=== PATIENT | male | born 1975 | race Caucasian/White ===

== ENCOUNTER → 2017-09-02 | Outpatient (REF) | LOC: ZLAB.WCH 15:50 | DX: Z01.89 Encounter for other specified special examinations (principal) ==

== ENCOUNTER 2018-06-28 07:31 | Inpatient (IN) | payer BC ==
[~2018-06-28] VITALS: Ht 170.2 cm; Wt 92.9 kg
[2018-06-28] VITALS (11 sets, daily range): BP systolic 119–148; BP diastolic 79–98; PULSE 57–87; TEMP 97.6–98.4
[2018-06-28] MEDS ORDERED: PRINIVIL10 MG PO (10:01)
--- NOTE | 2018-06-28 10:26 | NUR ---
Plan: Patient plans to discharge home. Assessment: SW met with patient about DC plan. Patient reports that he resides in [facility]. Patient reorts that he obtains RX from [facility]. Patient reports PCP as Marya Swann but in the process of transfering to another PCP. Patient reports that his DPOA is his mother Lili Meyer contact is . Patient reports that he will transport himself home with is partner Gt Bird . Patient denies the use of any DME. Patient denies having any care concerns during stay. Denies the use of needing or using any home health. Action: No additional needs identified. SW educated of resources in his area.
== END 2018-06-28 21:00 | disposition home or self-care (01) | DRG 661 ==
LOC: SURG 07:31
PROVIDERS: ADMIT Urology
PROC: 0T578ZZ Destruction of Left Ureter, Via Natural or Artificial Opening Endoscopic (ICD-10-PCS; principal; 2018-06-28 12:00)
PROC: 0T778DZ Dilation of Left Ureter with Intraluminal Device, Via Natural or Artificial Opening Endoscopic (ICD-10-PCS; 2018-06-28 12:00)
PROC: BT1F1ZZ Fluoroscopy of Left Kidney, Ureter and Bladder using Low Osmolar Contrast (ICD-10-PCS; 2018-06-28 12:00)
DX: N20.1 Calculus of ureter (principal); Z72.0 Tobacco use; I10 Essential (primary) hypertension
CPT/HCPCS: OP; C1769; C1894; C2617; J0690; J1100; J1885; J2405; J2704; J3010; J7030; Q9967